=== PATIENT | male | born 1970 | race Caucasian/White ===

== ENCOUNTER 2022-03-15 12:00 | Outpatient (RCR) | payer OTHER, MEDICAID, SELFPAY | END 2022-12-21 23:59 | disposition home or self-care (01) | PROVIDERS: PCP Physician Assistant Medical; Visit Provider Physician Assistant | DX: M51.26 Other intervertebral disc displacement, lumbar region (principal); Z51.89 Encounter for other specified aftercare | CPT/HCPCS: 97110; 97140; 97162; 97535 ==

== ENCOUNTER 2023-07-02 10:45 | Outpatient (RCR) | payer OTHER, MEDICAID, SELFPAY | END 2023-08-15 23:59 | disposition home or self-care (01) | PROVIDERS: PCP Physician Assistant Medical; Visit Provider Physician Assistant | DX: Z98.890 Other specified postprocedural states (principal); Z51.89 Encounter for other specified aftercare | CPT/HCPCS: 97110; 97112; 97140; 97161; 97530; 97535 ==

== ENCOUNTER 2023-08-15 11:26 | Outpatient (CLI) | payer MEDICAID, SELFPAY | END 2023-08-15 11:27 | disposition home or self-care (01) | LOC: AMB 08-22 12:58 | PROVIDERS: PCP Physician Assistant Medical; Visit Provider Family Medicine | DX: I46.9 Cardiac arrest, cause unspecified (principal) ==